=== PATIENT | male | born 1950 | race African-American/Black ===

== ENCOUNTER 2020-11-29 16:38 | Outpatient (CLI) | payer MEDICARE, SELFPAY | END 2020-11-29 16:39 | disposition home or self-care (01) | LOC: ANHCOVIDVC 16:38 | PROVIDERS: PCP Family Medicine | DX: Z23 Encounter for immunization (principal) | CPT/HCPCS: 0001A; 91300 ==

== ENCOUNTER 2020-12-20 16:37 | Outpatient (CLI) | payer MEDICARE, BC, SELFPAY | END 2020-12-20 16:38 | disposition home or self-care (01) | LOC: ANHCOVIDVC 16:37 | PROVIDERS: PCP Family Medicine | DX: Z23 Encounter for immunization (principal) | CPT/HCPCS: 0002A; 91300 ==

== ENCOUNTER 2022-09-09 10:42 | Outpatient (CLI) | payer MEDICARE, BC, SELFPAY ==
[2022-09-09 19:37] LABS: Alanine Aminotransferase 28 U/L (6-50); Albumin Level 4.6 g/dL (3.5-5.1); Alkaline Phosphatase 68 U/L (38-126); Anion Gap 6 mmol/L (8-16); Aspartate Amino Transferase 28 U/L (17-59); Bilirubin,Total 0.5 mg/dL (0.2-1.3); Blood Urea Nitrogen 22 mg/dL (9-20); Calcium 9.1 mg/dL (8.4-10.2); Carbon Dioxide 29 mmol/L (22-30); Chloride 105 mmol/L (98-107); Cholesterol 181 mg/dL (0-200); Estimated Glomerular Filt Rate > 60; Glucose 118 mg/dL (65-110); HDL Direct 64 mg/dL; Potassium 4.4 mmol/L (3.4-5.0); Sodium 140 mmol/L (137-145); Triglycerides 65 mg/dL (<150)
[2022-09-09 19:48] LABS: LDL Cholesterol Direct 79 mg/dL
[2022-09-09 20:01] LABS: Basophils Percent Auto 0.5 % (0.2-1.2); Eosinophils Absolute Auto 0.3 K/mm3 (0-0.3); Eosinophils Percent Auto 3.9 % (0-4.4); Hematocrit 37.9 % (42.0-52.0); Hemoglobin 12.4 g/dL (14.0-18.0); Immature Granulocyte Absolute 0.03 K/mm3 (0.00-0.031); Immature Granulocyte Percent A 0.4 % (0-0.5); Lymphocytes Absolute Auto 2.07 K/mm3 (0.9-3.2); Lymphocytes Percent Auto 25.8 % (18.3-44.2); Mean Corpuscular HGB Conc 32.7 g/dl (32-36); Mean Corpuscular Volume 94.8 fl (80-100); Mean Platelet Volume 12.2 fl (7.4-10.4); Monocytes Absolute Auto 0.5 K/mm3 (0.1-0.6); Monocytes Percent Auto 6.7 % (2.6-8.5); Neutrophils Percent Auto 62.7 % (45.5-73.1); Platelet Count Result 142 k/mm3 (150-375); Red Cell Distribution Width 13.5 % (11.5-14.5)
[2022-09-09 20:08] LABS: Prostate Specific Antigen 1.7 ng/mL (< OR = 4.0)
[2022-09-09 20:29] LABS: Hemoglobin A1C 6.9 % (<5.7)
[2022-09-09 20:41] LABS: Creatinine Urine 141.8 mg/dL
[2022-09-09 20:44] LABS: MALB Creatinine Ratio 17.4 mg/g (0-30); Microalbumin Urine Random 24.7 mg/L (0-16.7)
[2022-09-09 23:17] LABS: Free T4 Free Thyroxine Reflex 1.22 ng/dL (0.78-2.19)
[2022-09-10 01:22] LABS: Total Triiodothyronine (T3) 0.85 NG/ML (0.97-1.69)
== END 2022-09-09 10:43 | disposition home or self-care (01) ==
LOC: ANHGOSHLAB 10:45
PROVIDERS: PCP Family Medicine; Visit Provider Family Medicine
DX: E11.9 Type 2 diabetes mellitus without complications (principal); Z00.00 Encounter for general adult medical examination without abnormal findings; E78.5 Hyperlipidemia, unspecified; E55.9 Vitamin D deficiency, unspecified; E53.8 Deficiency of other specified B group vitamins; I10 Essential (primary) hypertension; Z12.5 Encounter for screening for malignant neoplasm of prostate
CPT/HCPCS: 36415; 80053; 80061; 82043; 82306; 82607; 83036; 84153; 84439; 84443; 84480; 85025; G0103

== ENCOUNTER 2022-10-03 09:10 | Outpatient (CLI) | payer MEDICARE, BC, SELFPAY | END 2022-10-03 09:11 | disposition home or self-care (01) | LOC: ANHGOSHLAB 09:12 | PROVIDERS: PCP Family Medicine; Visit Provider Family Medicine | DX: E03.9 Hypothyroidism, unspecified (principal) | CPT/HCPCS: 36415; 84443 ==

== ENCOUNTER 2022-10-09 00:14 | Day surgery (SDC) | payer MEDICARE, BC, SELFPAY ==
[2022-09-26 09:11] VITALS: BMI 23.7
--- NOTE | 2022-10-08 08:30 | WPDANESEPPF ---
Anes - Initial Pre Proc Eval Procedure: Operation Date: 10/09/22 09:30 Proposed Procedures p Screening Colonoscopy - Harpreet De Leon MD Date/Time: 10/08/22 08:30 Surgeon: Harpreet De Leon MD Pre Op Diagnosis: Neoplasm Screening Patient Data Age: 72 Gender: M Height: 1.93 m Weight: 88.5 kg Allergies Allergy/AdvReac Type Severity Reaction Status Date / Time Penicillins Allergy Unknown unknown Verified 10/09/22 08:58 Home Medications Medication Instructions Recorded Confirmed Type mecobalamin (vitamin B12) 1,000 1,000 mcg PO DAILY 12/21/19 09/26/22 History mcg chewable tablet tadalafil 20 mg tablet 20 mg PO DAILY PRN sexual activity 09/04/21 09/26/22 Rx #90 tabs hydrocodone 7.5 mg-acetaminophen 1 tablet PO Q12H PRN pain #60 tabs 09/09/22 09/26/22 Rx 325 mg tablet levothyroxine 112 mcg tablet 112 mcg PO QAM #90 tabs 09/09/22 09/26/22 Rx losartan 50 mg tablet 50 mg PO DAILY #90 tabs 09/09/22 09/26/22 Rx metformin 500 mg tablet 500 mg PO BID #180 tabs 09/09/22 09/26/22 Rx metoprolol succinate 50 mg 50 mg PO DAILY #90 tabs 09/09/22 09/26/22 Rx tablet,extended release 24 hr pravastatin 40 mg tablet 40 mg PO QHS #90 tabs 09/09/22 09/26/22 Rx Patient hx anesthesia problems: none Family hx anesthesia problems: none Results Review: All pre-operative results and documents have been reviewed as part of the pre-operative evaluation. [facility] Past Medical History Medical History (Updated 10/08/22 @ 08:31 by Jt Marin DO) Adult hypothyroidism Chronic neck and back pain CKD (chronic kidney disease) stage 3, GFR 30-59 ml/min Erectile dysfunction Hypertension Irregular heartbeat Osteoarthritis Osteoarthritis involving multiple joints on both sides of body Thyroid cancer Type 2 diabetes mellitus without complications Vitamin B12 deficiency Vitamin D deficiency Surgical History Surgical History H/O thyroidectomy 2004 History of bilateral inguinal hernia repair 2006 Hx of cataract surgery (~02/17/22) Social History Social History Social History: GM: 41 years Smoking status: Never smoker Second hand tobacco smoke exposure: Yes Alcohol intake: current Drinks per week: 7 Alcohol use details: beer Substance use: current Substance use type: marijuana Last use: occasionally Lack of Transportation: No Lack of Food: Never True Current Housing: I Have Housing Concerned About Future Housing: No Difficulty Paying Gas/Electric Bills: No Difficulty Paying for Meds: No Currently Unemployed: No Education: High School Diploma/GED Difficulty w/ Childcare or Family Care: No Living arrangements: alone Gender identity (if verbalized by the patient): Male Spiritual care concerns: No Agree to blood products: Yes Anes - Eval Final PreProcedure Day of Procedure 10/08/22 08:30 Patient weight: normal Heart: regular rate and rhythm Lungs: clear to auscultation and normal air movement Airway: Mallampati scale class II Neurological: alert and oriented Last oral intake: >/= 8 hours ASA classification: III Emergent: no Anesthetic plan: proceed Anesthesia type and monitoring: general GIVS and standard monitoring Results Review: All pre-operative results and documents have been reviewed as part of the pre-operative evaluation. Informed Consent: The patient's anesthetic plan and its attendant risks and benefits were discussed with the patient/family/POA. Questions were solicited and answers provided to the satisfaction of the patient/family/POA.
[2022-10-09 09:00] VITALS: BP 146/81; PULSE 71; RESP 18; TEMP 36.6; O2SAT 100
[2022-10-09] MEDS: LACTATED RINGERS 1,000 ML 150 ML IV CONT (09:09)
[2022-10-09 09:16] LABS: Glucose Point of Care 124 mg/dl (65-105)
--- NOTE | 2022-10-09 09:18 | PM.HPGS ---
History of Present Illness History of Present Illness Consent: Risks, benefits, and alternatives have been discussed and questions answered. Patient agrees to proceed with procedure. Chief complaint: Neoplasm Screening Narrative: Nick Sam is a 72 year old male Presents for screening colonoscopy. Patient's current weight appetite and bowel movements are normal. Patient denies abdominal pain. He has had no bleeding. Family history noncontributory. Previous colonoscopy over 10 years ago performed in [place] was apparently unremarkable. Review of Systems Review of Systems: Review of systems noncontributory. [facility] Past Medical History Medical History (Updated 10/09/22 @ 09:20 by Harpreet De Leon MD) Adult hypothyroidism Chronic neck and back pain CKD (chronic kidney disease) stage 3, GFR 30-59 ml/min Erectile dysfunction Hypertension Irregular heartbeat Osteoarthritis Osteoarthritis involving multiple joints on both sides of body Thyroid cancer Type 2 diabetes mellitus without complications Vitamin B12 deficiency Vitamin D deficiency Surgical History Surgical History H/O thyroidectomy 2003 History of bilateral inguinal hernia repair 2005 Hx of cataract surgery (~02/17/22) Social History Social History Social History: GM: 41 years Smoking status: Never smoker Second hand tobacco smoke exposure: Yes Alcohol intake: current Drinks per week: 7 Alcohol use details: beer Substance use: current Substance use type: marijuana Last use: occasionally Lack of Transportation: No Lack of Food: Never True Current Housing: I Have Housing Concerned About Future Housing: No Difficulty Paying Gas/Electric Bills: No Difficulty Paying for Meds: No Currently Unemployed: No Education: High School Diploma/GED Difficulty w/ Childcare or Family Care: No Living arrangements: alone Gender identity (if verbalized by the patient): Male Spiritual care concerns: No Agree to blood products: Yes Meds Home Medications and Allergies Home Medications Medication Instructions Recorded Confirmed Type mecobalamin (vitamin B12) 1,000 1,000 mcg PO DAILY 12/21/19 09/26/22 History mcg chewable tablet tadalafil 20 mg tablet 20 mg PO DAILY PRN sexual activity 09/04/21 09/26/22 Rx #90 tabs hydrocodone 7.5 mg-acetaminophen 1 tablet PO Q12H PRN pain #60 tabs 09/09/22 09/26/22 Rx 325 mg tablet levothyroxine 112 mcg tablet 112 mcg PO QAM #90 tabs 09/09/22 09/26/22 Rx losartan 50 mg tablet 50 mg PO DAILY #90 tabs 09/09/22 09/26/22 Rx metformin 500 mg tablet 500 mg PO BID #180 tabs 09/09/22 09/26/22 Rx metoprolol succinate 50 mg 50 mg PO DAILY #90 tabs 09/09/22 09/26/22 Rx tablet,extended release 24 hr pravastatin 40 mg tablet 40 mg PO QHS #90 tabs 09/09/22 09/26/22 Rx Allergies Allergy/AdvReac Type Severity Reaction Status Date / Time Penicillins Allergy Unknown unknown Verified 10/09/22 08:58 Vital Signs Vital Signs - 24 hr 10/09/22 09:00 Temperature 97.9 F Pulse Rate 71 Respiratory Rate 18 Blood Pressure 146/81 H Pulse Oximetry 100 Oxygen Delivery Room Air Exam Narrative: Physical exam reveals patient to be alert. Vital signs stable. HEENT exam is unremarkable. Patient is anicteric. Lungs are clear to auscultation and percussion. Heart is without murmur or extra sounds. Abdomen bowel sounds are present soft nontender with no organomegaly. Digital external rectal exam normal. Assessment and Plan Assessment and plan (1) Encounter for screening colonoscopy: Code(s): Z12.11 - Encounter for screening for malignant neoplasm of colon Status: Acute Assessment and Plan: Patient presents today for screening colonoscopy. He appears to be at average risk for colon polyps. Further recommendations may be given after end
[2022-10-09] MEDS: SIMETHICONE ORAL SUSPENSION 20 MG/0.3 ML 30 ML BOTTLE 0.6 ML IRRIGATION (09:33)
[2022-10-09 09:45] VITALS: BP 130/67; PULSE 62; RESP 19; O2SAT 96
[2022-10-09 09:55] VITALS: BP 122/72; PULSE 66; RESP 17; O2SAT 100
[2022-10-09 10:05] VITALS: BP 136/80; PULSE 63; RESP 15; O2SAT 100
== END 2022-10-09 10:20 | disposition home or self-care (01) ==
PROVIDERS: PCP Family Medicine; Visit Provider Internal Medicine Gastroenterology
PROC: 0DJD8ZZ Inspection of Lower Intestinal Tract, Via Natural or Artificial Opening Endoscopic (ICD-10-PCS; CPT 45378; principal; 2022-10-09 09:30)
DX: Z12.2 Encounter for screening for malignant neoplasm of respiratory organs (principal); K63.5 Polyp of colon; K64.8 Other hemorrhoids; I12.9 Hypertensive chronic kidney disease with stage 1 through stage 4 chronic kidney disease, or unspecified chronic kidney disease; E11.22 Type 2 diabetes mellitus with diabetic chronic kidney disease; N18.30 Chronic kidney disease, stage 3 unspecified; E53.8 Deficiency of other specified B group vitamins; E89.0 Postprocedural hypothyroidism; Z85.850 Personal history of malignant neoplasm of thyroid; Z79.84 Long term (current) use of oral hypoglycemic drugs; F12.90 Cannabis use, unspecified, uncomplicated
CPT/HCPCS: 45385; 82948; 88305; J2704; J7120

== ENCOUNTER 2022-10-23 19:47 | Outpatient (NON) | payer MEDICARE, BC, SELFPAY | END 2022-10-23 19:48 | disposition home or self-care (01) | PROVIDERS: PCP Family Medicine; Visit Provider Nurse Practitioner Family | DX: R39.9 Unspecified symptoms and signs involving the genitourinary system (principal) | CPT/HCPCS: 87077; 87086; 87186 ==

== ENCOUNTER 2023-03-09 08:55 | Outpatient (CLI) | payer MEDICARE, BC, SELFPAY ==
[2023-03-09 14:30] LABS: Alanine Aminotransferase 29 U/L (6-50); Albumin Level 4.4 g/dL (3.5-5.1); Alkaline Phosphatase 63 U/L (38-126); Anion Gap 7 mmol/L (8-16); Aspartate Amino Transferase 29 U/L (17-59); Bilirubin,Total 0.4 mg/dL (0.2-1.3); Blood Urea Nitrogen 21 mg/dL (9-20); Calcium 8.8 mg/dL (8.4-10.2); Carbon Dioxide 28 mmol/L (22-30); Chloride 105 mmol/L (98-107); Estimated Glomerular Filt Rate > 60; Glucose 113 mg/dL (65-110); Potassium 4.1 mmol/L (3.4-5.0); Sodium 140 mmol/L (137-145)
[2023-03-09 15:02] LABS: Hemoglobin A1C 6.6 % (<5.7)
[2023-03-09 15:07] LABS: Vitamin D 25 Hydroxy 49.5 ng/mL
== END 2023-03-09 08:56 | disposition home or self-care (01) ==
LOC: ANHGOSHLAB 08:56
PROVIDERS: PCP Family Medicine; Visit Provider Family Medicine
DX: I10 Essential (primary) hypertension (principal); E11.9 Type 2 diabetes mellitus without complications; E55.9 Vitamin D deficiency, unspecified; E03.9 Hypothyroidism, unspecified
CPT/HCPCS: 36415; 80053; 82306; 83036; 84443

== ENCOUNTER 2023-07-02 19:01 | Outpatient (NON) | payer MEDICARE, BC, SELFPAY | END 2023-07-02 19:02 | disposition home or self-care (01) | LOC: ANHGOSHLAB 19:10 | PROVIDERS: PCP Family Medicine; Visit Provider Nurse Practitioner Family | DX: R30.0 Dysuria (principal); N39.0 Urinary tract infection, site not specified | CPT/HCPCS: 87077; 87086; 87186 ==

== ENCOUNTER 2023-07-16 12:29 | Outpatient (CLI) | payer MEDICARE, BC, SELFPAY | END 2023-07-16 12:30 | disposition home or self-care (01) | LOC: ANHGOSHLAB 12:32 | PROVIDERS: PCP Family Medicine; Visit Provider Family Medicine | DX: N39.0 Urinary tract infection, site not specified (principal) | CPT/HCPCS: 87077; 87086; 87186 ==

== ENCOUNTER 2023-09-14 10:38 | Outpatient (CLI) | payer MEDICARE, BC, SELFPAY ==
[2023-09-14 19:45] LABS: Basophils Percent Auto 0.6 % (0.2-1.2); Eosinophils Absolute Auto 0.2 K/mm3 (0-0.3); Eosinophils Percent Auto 4.5 % (0-4.4); Hemoglobin 12.5 g/dL (14.0-18.0); Immature Granulocyte Absolute 0.02 K/mm3 (0.00-0.031); Immature Granulocyte Percent A 0.4 % (0-0.5); Lymphocytes Percent Auto 35.6 % (18.3-44.2); Mean Corpuscular HGB Conc 31.3 g/dl (32-36); Mean Corpuscular Volume 96.2 fl (80-100); Mean Platelet Volume 12.5 fl (7.4-10.4); Monocytes Absolute Auto 0.4 K/mm3 (0.1-0.6); Monocytes Percent Auto 6.9 % (2.6-8.5); Neutrophils Absolute Auto 2.8 K/mm3 (1.3-6.7); Platelet Count Result 149 k/mm3 (150-375); Red Blood Count 4.16 M/mm3 (4.6-6.20); Red Cell Distribution Width 13.8 % (11.5-14.5); White Blood Count 5.3 K/mm3 (4.5-10.0)
[2023-09-14 20:13] LABS: Potassium 4.3 mmol/L (3.4-5.0)
[2023-09-14 20:21] LABS: Alanine Aminotransferase 23 U/L (6-50); Albumin Level 4.4 g/dL (3.5-5.1); Alkaline Phosphatase 74 U/L (38-126); Anion Gap 8 mmol/L (8-16); Aspartate Amino Transferase 28 U/L (17-59); Bilirubin,Total 0.6 mg/dL (0.2-1.3); Blood Urea Nitrogen 17 mg/dL (9-20); Calcium 9.4 mg/dL (8.4-10.2); Carbon Dioxide 26 mmol/L (22-30); Chloride 104 mmol/L (98-107); Cholesterol 217 mg/dL (0-200); Estimated Glomerular Filt Rate > 60; Glucose 115 mg/dL (65-110); HDL Direct 72 mg/dL; Sodium 138 mmol/L (137-145); Triglycerides 75 mg/dL (<150)
[2023-09-14 20:22] LABS: Vitamin D 25 Hydroxy 57.6 ng/mL
[2023-09-14 20:26] LABS: LDL Cholesterol Direct 99 mg/dL
[2023-09-14 20:35] LABS: Creatinine Urine 36.1 mg/dL
[2023-09-14 20:39] LABS: MALB Creatinine Ratio 38.8 mg/g (0-30)
[2023-09-14 20:47] LABS: Prostate Specific Antigen 1.5 ng/mL (< OR = 4.0)
[2023-09-14 21:29] LABS: Hemoglobin A1C 6.4 % (<5.7)
== END 2023-09-14 10:39 | disposition home or self-care (01) ==
LOC: ANHGOSHLAB 10:40
PROVIDERS: PCP Family Medicine; Visit Provider Family Medicine
DX: E11.9 Type 2 diabetes mellitus without complications (principal); E53.8 Deficiency of other specified B group vitamins; Z12.5 Encounter for screening for malignant neoplasm of prostate; E78.5 Hyperlipidemia, unspecified; E55.9 Vitamin D deficiency, unspecified
CPT/HCPCS: 36415; 80053; 80061; 82043; 82306; 82607; 83036; 84153; 84443; 85025; G0103

== ENCOUNTER 2024-03-14 09:22 | Outpatient (CLI) | payer MEDICARE, BC, SELFPAY ==
[2024-03-14 13:36] LABS: Hematocrit 36.2 % (42.0-52.0); Hemoglobin 11.7 g/dL (14.0-18.0); Mean Corpuscular HGB Conc 32.3 g/dl (32-36); Mean Corpuscular Hemoglobin 30.5 pg (26-34); Mean Corpuscular Volume 94.5 fl (80-100); Mean Platelet Volume 12.5 fl (7.4-10.4); Platelet Count Result 132 k/mm3 (150-375); Red Blood Count 3.83 M/mm3 (4.6-6.20); Red Cell Distribution Width 13.5 % (11.5-14.5)
[2024-03-14 13:48] LABS: Alanine Aminotransferase 19 U/L (6-50); Albumin Level 4.5 g/dL (3.5-5.1); Alkaline Phosphatase 63 U/L (38-126); Anion Gap 8 mmol/L (4-12); Aspartate Amino Transferase 38 U/L (17-59); Bilirubin,Total 0.6 mg/dL (0.2-1.3); Blood Urea Nitrogen 18 mg/dL (9-20); Calcium 9.3 mg/dL (8.4-10.2); Carbon Dioxide 25 mmol/L (22-30); Chloride 107 mmol/L (98-107); Cholesterol 218 mg/dL (0-200); Estimated Glomerular Filt Rate > 60; Glucose 109 mg/dL (65-110); HDL Direct 68 mg/dL; Potassium 4.1 mmol/L (3.4-5.0); Sodium 140 mmol/L (137-145); Triglycerides 94 mg/dL (<150)
[2024-03-14 13:59] LABS: LDL Cholesterol Direct 101 mg/dL
[2024-03-14 15:30] LABS: Free T4 Free Thyroxine 1.59 ng/mL (0.78-2.19)
[2024-03-14 15:58] LABS: Hemoglobin A1C 6.4 % (<5.7)
[2024-03-18 15:53] LABS: Vitamin D 1,25 (OH)2 Total 48 pg/mL (18-72); Vitamin D2 1,25 (OH)2 <8 pg/mL; Vitamin D3 1,25 (OH)2 48 pg/mL
== END 2024-03-14 09:23 | disposition home or self-care (01) ==
LOC: ANHGOSHLAB 09:23
PROVIDERS: PCP Family Medicine; Visit Provider Family Medicine
DX: E03.9 Hypothyroidism, unspecified (principal); E11.9 Type 2 diabetes mellitus without complications; E55.9 Vitamin D deficiency, unspecified; E78.5 Hyperlipidemia, unspecified; I10 Essential (primary) hypertension
CPT/HCPCS: 36415; 80053; 80061; 82652; 83036; 84439; 84443; 85027

== ENCOUNTER 2024-09-19 08:56 | Outpatient (CLI) | payer MEDICARE, BC, SELFPAY ==
[2024-09-19 12:19] LABS: Basophils Percent Auto 0.5 % (0.2-1.2); Eosinophils Absolute Auto 0.2 K/mm3 (0-0.3); Eosinophils Percent Auto 3.6 % (0-4.4); Hematocrit 41.4 % (42.0-52.0); Hemoglobin 13.5 g/dL (14.0-18.0); Immature Granulocyte Absolute 0.02 K/mm3 (0.00-0.031); Immature Granulocyte Percent A 0.4 % (0-0.5); Lymphocytes Absolute Auto 1.78 K/mm3 (0.9-3.2); Lymphocytes Percent Auto 32.4 % (18.3-44.2); Mean Corpuscular HGB Conc 32.6 g/dl (32-36); Mean Corpuscular Hemoglobin 30.8 pg (26-34); Mean Corpuscular Volume 94.3 fl (80-100); Mean Platelet Volume 12.2 fl (7.4-10.4); Monocytes Absolute Auto 0.4 K/mm3 (0.1-0.6); Monocytes Percent Auto 7.3 % (2.6-8.5); Neutrophils Absolute Auto 3.1 K/mm3 (1.3-6.7); Neutrophils Percent Auto 55.8 % (45.5-73.1); Platelet Count Result 159 k/mm3 (150-375); Red Blood Count 4.39 M/mm3 (4.6-6.20); Red Cell Distribution Width 13.2 % (11.5-14.5); White Blood Count 5.5 K/mm3 (4.5-10.0)
[2024-09-19 12:56] LABS: Hemoglobin A1C 6.2 % (<5.7)
[2024-09-19 13:01] LABS: Iron 86 ug/dL (49-181)
[2024-09-19 13:03] LABS: Alanine Aminotransferase 23 U/L (6-50); Albumin Level 4.8 g/dL (3.5-5.1); Alkaline Phosphatase 67 U/L (38-126); Anion Gap 3 mmol/L (4-12); Aspartate Amino Transferase 43 U/L (17-59); Bilirubin,Total 0.6 mg/dL (0.2-1.3); Blood Urea Nitrogen 20 mg/dL (9-20); Calcium 9.6 mg/dL (8.4-10.2); Carbon Dioxide 28 mmol/L (22-30); Chloride 106 mmol/L (98-107); Cholesterol 233 mg/dL (0-200); Estimated Glomerular Filt Rate > 60; Glucose 113 mg/dL (65-110); HDL Direct 72 mg/dL; LDL Cholesterol Direct 100 mg/dL; Potassium 4.2 mmol/L (3.4-5.0); Sodium 137 mmol/L (137-145); Triglycerides 116 mg/dL (<150)
[2024-09-19 13:08] LABS: Creatinine Urine 80.6 mg/dL
[2024-09-19 13:09] LABS: MALB Creatinine Ratio 15.3 mg/g (0-30); Microalbumin Urine Random 12.3 mg/L (0-16.7)
[2024-09-19 13:10] LABS: Percent Iron Saturation 24 % (20-50)
[2024-09-19 13:13] LABS: Prostate Specific Antigen 1.7 ng/mL (< OR = 4.0)
[2024-09-19 14:12] LABS: Folic Acid 6.7 ng/mL (2.76->20)
== END 2024-09-19 08:57 | disposition home or self-care (01) ==
LOC: ANHGOSHLAB 08:58
PROVIDERS: PCP Family Medicine; Visit Provider Family Medicine
DX: D64.9 Anemia, unspecified (principal); I10 Essential (primary) hypertension; E78.5 Hyperlipidemia, unspecified; E11.9 Type 2 diabetes mellitus without complications; E03.9 Hypothyroidism, unspecified; Z12.5 Encounter for screening for malignant neoplasm of prostate; E55.9 Vitamin D deficiency, unspecified
CPT/HCPCS: 36415; 80053; 80061; 82043; 82306; 82607; 82728; 82746; 83036; 83540; 83550; 84153; 84443; 85025; G0103

== ENCOUNTER 2025-02-22 10:50 | Outpatient (CLI) | payer MEDICARE, BC, SELFPAY ==
--- NOTE | ~2025-02-22 | US_ITS ---
EXAMINATION: US soft tissue upper back DATE: 02/22/2025 11:22 INDICATION: Soft tissue mass at the right upper back/lower neck TECHNIQUE: Multiple grayscale and Doppler ultrasound images of the region of concern at the right pos terior base of the neck were obtained. 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 Reviewed, dictated and finalized at location A.
== END 2025-02-22 10:51 | disposition home or self-care (01) ==
PROVIDERS: PCP Family Medicine; Visit Provider Plastic Surgery
DX: R22.2 Localized swelling, mass and lump, trunk (principal)
CPT/HCPCS: 76604

== ENCOUNTER 2025-03-22 08:57 | Outpatient (CLI) | payer MEDICARE, BC, SELFPAY ==
[2025-03-22 19:10] LABS: Alanine Aminotransferase 31 U/L (6-50); Albumin Level 4.5 g/dL (3.5-5.1); Alkaline Phosphatase 58 U/L (38-126); Anion Gap 9 mmol/L (4-12); Aspartate Amino Transferase 37 U/L (17-59); Bilirubin,Total 0.4 mg/dL (0.2-1.3); Blood Urea Nitrogen 23 mg/dL (9-20); Calcium 9.6 mg/dL (8.4-10.2); Carbon Dioxide 25 mmol/L (22-30); Chloride 104 mmol/L (98-107); Estimated Glomerular Filt Rate 57; Glucose 110 mg/dL (65-110); Potassium 4.9 mmol/L (3.4-5.0); Sodium 138 mmol/L (137-145); Total Protein 7.6 g/dL (6.3-8.2)
[2025-03-22 19:32] LABS: Creatinine Urine 72.4 mg/dL
[2025-03-22 19:36] LABS: MALB Creatinine Ratio 10.4 mg/g (0-30); Microalbumin Urine Random 7.5 mg/L (0-16.7)
[2025-03-22 20:56] LABS: Free T4 Free Thyroxine Reflex 1.18 ng/dL (0.78-2.19)
[2025-03-22 21:17] LABS: Hemoglobin A1C 6.6 % (<5.7)
[2025-03-22 21:41] LABS: Total Triiodothyronine (T3) 0.75 NG/ML (0.82-1.58)
== END 2025-03-22 08:58 | disposition home or self-care (01) ==
LOC: ANHGOSHLAB 08:57
PROVIDERS: PCP Family Medicine; Visit Provider Family Medicine
DX: E11.9 Type 2 diabetes mellitus without complications (principal); I10 Essential (primary) hypertension; E03.9 Hypothyroidism, unspecified
CPT/HCPCS: 36415; 80053; 82043; 83036; 84439; 84443; 84480

== ENCOUNTER 2025-05-04 10:27 | Outpatient (CLI) | payer MEDICARE, BC, SELFPAY ==
[2025-05-04 13:18] LABS: Alanine Aminotransferase 25 U/L (6-50); Albumin Level 4.3 g/dL (3.5-5.1); Alkaline Phosphatase 64 U/L (38-126); Anion Gap 9 mmol/L (4-12); Aspartate Amino Transferase 40 U/L (17-59); Bilirubin,Total 0.3 mg/dL (0.2-1.3); Blood Urea Nitrogen 22 mg/dL (9-20); Calcium 9.2 mg/dL (8.4-10.2); Carbon Dioxide 25 mmol/L (22-30); Chloride 105 mmol/L (98-107); Estimated Glomerular Filt Rate 38; Glucose 97 mg/dL (65-110); Potassium 4.7 mmol/L (3.4-5.0); Sodium 139 mmol/L (137-145); Total Protein 7.2 g/dL (6.3-8.2)
[2025-05-04 13:44] LABS: Thyroid Stimulating Hormone Reflex 10.600 uIU/mL (0.465-4.68)
[2025-05-04 14:28] LABS: Free T4 Free Thyroxine Reflex 1.09 ng/dL (0.78-2.19)
[2025-05-05 06:24] LABS: Total Triiodothyronine (T3) 0.62 NG/ML (0.82-1.58)
== END 2025-05-04 10:28 | disposition home or self-care (01) ==
LOC: ANHGOSHLAB 10:29
PROVIDERS: PCP Family Medicine; Visit Provider Family Medicine
DX: E03.9 Hypothyroidism, unspecified (principal); N28.9 Disorder of kidney and ureter, unspecified; I10 Essential (primary) hypertension
CPT/HCPCS: 36415; 80053; 84439; 84443; 84480

== ENCOUNTER 2025-07-24 14:34 | Outpatient (CLI) | payer MEDICARE, BC, SELFPAY ==
[2025-07-24 18:45] LABS: Alanine Aminotransferase 26 U/L (6-50); Albumin Level 4.5 g/dL (3.5-5.1); Alkaline Phosphatase 95 U/L (38-126); Anion Gap 10 mmol/L (4-12); Aspartate Amino Transferase 61 U/L (17-59); Bilirubin,Total 0.4 mg/dL (0.2-1.3); Blood Urea Nitrogen 22 mg/dL (9-20); Calcium 10.0 mg/dL (8.4-10.2); Carbon Dioxide 26 mmol/L (22-30); Chloride 101 mmol/L (98-107); Estimated Glomerular Filt Rate 46; Glucose 104 mg/dL (65-110); Potassium 4.8 mmol/L (3.4-5.0); Sodium 137 mmol/L (137-145); Total Protein 8.3 g/dL (6.3-8.2)
[2025-07-24 19:22] LABS: Thyroid Stimulating Hormone Reflex 0.507 uIU/mL (0.465-4.68)
== END 2025-07-24 14:35 | disposition home or self-care (01) ==
LOC: ANHGOSHLAB 14:34
PROVIDERS: PCP Family Medicine; Visit Provider Family Medicine
DX: E03.9 Hypothyroidism, unspecified (principal); I10 Essential (primary) hypertension
CPT/HCPCS: 36415; 80053; 84443

== ENCOUNTER 2025-07-24 14:46 | Outpatient (CLI) | payer MEDICARE, BC, SELFPAY ==
--- NOTE | ~2025-07-24 | XR_ITS ---
XR cervical spine 4-5V Indication: Cervicalgia x 10 days, no inj, no surgery Comparison: None Findings: Moderate loss of vertebral height throughout. No fracture, no subluxation flexion and extension Severe loss of disc height at C4-5 C5-6 and C6-7. Soft tissues unremarkable Impression: No acute abnormality. Reviewed, dictated and finalized at location P. Impression: No acute abnormality.
== END 2025-07-24 14:47 | disposition home or self-care (01) ==
LOC: GOSHIMG 14:46
PROVIDERS: PCP Family Medicine; Visit Provider Family Medicine
DX: M54.2 Cervicalgia (principal)
CPT/HCPCS: 72050

== ENCOUNTER 2025-09-19 08:38 | Outpatient (CLI) | payer MEDICARE, BC, SELFPAY ==
[2025-09-19 13:24] LABS: Hematocrit 35.0 % (42.0-52.0); Hemoglobin 11.0 g/dL (14.0-18.0); Immature Granulocyte Percent A 0.2 % (0-0.5); Lymphocytes Absolute Auto 1.76 K/mm3 (0.9-3.2); Mean Corpuscular HGB Conc 31.4 g/dl (32-36); Mean Corpuscular Hemoglobin 29.5 pg (26-34); Mean Corpuscular Volume 93.8 fl (80-100); Nucleated Red Blood Cells Absolute Auto 0.000 K/mm3 (0.0-0.012); Nucleated Red Blood Cells Perc 0.0 % (0.0-0.2); Platelet Count Result 164 k/mm3 (150-375); Red Blood Count 3.73 M/mm3 (4.6-6.20); White Blood Count 5.3 K/mm3 (4.5-10.0)
[2025-09-19 13:31] LABS: Hemoglobin A1C 6.4 % (<5.7)
[2025-09-19 13:38] LABS: Alanine Aminotransferase 36 U/L (6-50); Albumin Level 4.3 g/dL (3.5-5.1); Alkaline Phosphatase 73 U/L (38-126); Anion Gap 7 mmol/L (4-12); Aspartate Amino Transferase 45 U/L (17-59); Bilirubin,Total 0.3 mg/dL (0.2-1.3); Blood Urea Nitrogen 22 mg/dL (9-20); Calcium 9.2 mg/dL (8.4-10.2); Carbon Dioxide 27 mmol/L (22-30); Chloride 105 mmol/L (98-107); Cholesterol 190 mg/dL (0-200); Estimated Glomerular Filt Rate 59; Glucose 99 mg/dL (65-110); HDL Direct 71 mg/dL; Magnesium 1.7 mg/dL (1.6-2.3); Potassium 4.4 mmol/L (3.4-5.0); Sodium 139 mmol/L (137-145); Total Protein 7.3 g/dL (6.3-8.2); Triglycerides 73 mg/dL (<150)
[2025-09-19 14:05] LABS: Thyroid Stimulating Hormone Reflex 0.091 uIU/mL (0.465-4.68)
[2025-09-19 14:20] LABS: Prostate Specific Antigen 1.9 ng/mL (< OR = 4.0)
[2025-09-19 14:39] LABS: Vitamin B12 480.0 pg/mL (239-931)
[2025-09-19 16:57] LABS: Free T4 Free Thyroxine Reflex 1.56 ng/dL (0.78-2.19)
[2025-09-19 17:46] LABS: Total Triiodothyronine (T3) 0.87 NG/ML (0.82-1.58)
== END 2025-09-19 08:39 | disposition home or self-care (01) ==
LOC: ANHGOSHLAB 08:39
PROVIDERS: PCP Family Medicine; Visit Provider Nurse Practitioner Family
DX: E11.9 Type 2 diabetes mellitus without complications (principal); I10 Essential (primary) hypertension; Z12.5 Encounter for screening for malignant neoplasm of prostate; N52.9 Male erectile dysfunction, unspecified; E55.9 Vitamin D deficiency, unspecified
CPT/HCPCS: 36415; 80053; 80061; 82306; 82607; 83036; 83735; 84153; 84439; 84443; 84480; 85025; G0103